=== PATIENT | female | born 1960 | race Caucasian/White ===

== ENCOUNTER → 2017-02-08 | Outpatient (CLI) | payer OTHER ==
--- NOTE | 2017-02-10 13:14 | MM ---
Reason for exam: screening (asymptomatic). Last mammogram was performed 1 year and 1 month ago. History: Excisional biopsy of the right breast, 2016. Physical Findings: A clinical breast exam by your physician is recommended on an annual basis and results should be correlated with mammographic findings. MG Screening Mammo w CAD Bilateral CC and MLO view(s) were taken. Prior study comparison: January 06, 2016, bilateral MG screening mammo w CAD. September 02, 2014, bilateral MG screening mammo w CAD. There are scattered fibroglandular densities. No significant changes when compared with prior studies. ASSESSMENT: Negative, BI-RAD 1 RECOMMENDATION: Routine screening mammogram of both breasts in 1 year.
== END | disposition home or self-care (01) ==
LOC: RADMAMWWP 13:31
PROVIDERS: ATTEND Family Medicine
DX: Z12.31 Encounter for screening mammogram for malignant neoplasm of breast (principal)

== ENCOUNTER → 2017-02-09 | Outpatient (CLI) | payer OTHER ==
--- NOTE | 2017-02-09 13:29 | XR ---
EXAMINATION TYPE: XR Hip Complete LT DATE OF EXAM: 02/09/2017 1:10 PM COMPARISON: NONE HISTORY: Pain TECHNIQUE: 2 views submitted FINDINGS: There is no evidence of erosive change or acute fracture. Hypertrophic changes seen of the femoral head. Mild concentric narrowing. No erosive changes. IMPRESSION: 1. No evidence of acute fracture or dislocation. 2. Hypertrophic change and mild arthropathy of the left hip
--- NOTE | 2017-02-09 13:32 | XR ---
EXAMINATION TYPE: XR knee complete LT DATE OF EXAM: 02/09/2017 1:11 PM COMPARISON: NONE HISTORY: Pain TECHNIQUE: Four views are submitted. FINDINGS: Hypertrophic changes are seen with mild narrowing of the medial compartment of the knee joint. Minima l hypertrophic change involving the inferior margin the patella. Trace amount of fluid in the suprapa tellar bursa. Osseous structures are intact. No acute fracture seen. IMPRESSION: 1. No acute fracture or dislocation. 2. Mild arthropathy with a small amount of fluid in the suprapatellar bursa
== END | disposition home or self-care (01) ==
LOC: RADXRMAIN 12:59
PROVIDERS: ATTEND Psychiatry & Neurology Neurology
DX: M12.862 Other specific arthropathies, not elsewhere classified, left knee (principal); M12.852 Other specific arthropathies, not elsewhere classified, left hip
CPT/HCPCS: 73502

== ENCOUNTER → 2018-01-12 | Outpatient (CLI) | payer OTHER ==
--- NOTE | 2018-01-12 23:19 | MR ---
EXAMINATION TYPE: MR cspine/tspine/lspine wo con DATE OF EXAM: 01/12/2018 COMPARISON: NONE HISTORY: Back pain TECHNIQUE: Multiplanar, multisequence imaging of the lumbar thoracic and cervical spine is performed without IV contrast. FINDINGS cervical spine: Cervical vertebra show mild straightening. There is degenerative disc space narrowing throughout the cervical spine and more severe at C4-5 C5-6 C6-7. There is uncovertebral spu rring and mild encroachment on the spinal canal at C4-5 C5-6 C6-7. This is worse on the right side co mpared to the left. Cervical spinal cord shows no edema. There is no compression fracture in the cerv ical spine. The skull base appears intact. Visualized brainstem appears normal. There is minimal uncovertebral im pingement on the left side at C4-5, mild to moderate impingement at C5-6 on the right side. Posterior elements are intact. Conclusion Spondylotic changes in the cervical spine with mild neural foraminal impingement as above. There is s ome progression of these uncovertebral spurring compared to old MR scan of 12/27/2014. Thoracic spine findings Thoracic vertebra have fairly normal alignment. There is narrowing of disc spaces throughout the mid and upper thoracic spine. There is no compression fracture. I see no focal bone destruction. There is no thoracic paraspinal mass. Posterior elements are intact. Thoracic spinal cord has normal signal p attern without evidence of edema. There is no thoracic spinal stenosis. Neural foramina appear patent . CONCLUSION: Minor degenerative disc changes in the mid and upper thoracic spine. No fracture. No spinal stenosis or thoracic disc herniation. Lumbar spine findings The lumbar vertebra have normal alignment. There is transitional S1 vertebra. There is narrowing of L 5-S1 disc space. There is mild posterior disc bulging at L4-5. There is developmentally adequate spin al canal and no spinal stenosis. Lumbar nerve roots appear normal. The lumbar neural foramina are wid saba patent. Posterior elements appear intact. The visualized sacroiliac joints appear normal. CONCLUSION: Degenerative disc narrowing at L5-S1. No fracture. No spinal stenosis or lumbar disc herniation. Smal l posterior disc bulging at L4-5 is stable compared to old exam.
== END | disposition home or self-care (01) ==
LOC: RADMRIMAIN 16:18
PROVIDERS: ATTEND Psychiatry & Neurology Neurology
DX: M99.73 Connective tissue and disc stenosis of intervertebral foramina of lumbar region (principal); M51.26 Other intervertebral disc displacement, lumbar region; M51.34 Other intervertebral disc degeneration, thoracic region; M47.812 Spondylosis without myelopathy or radiculopathy, cervical region
CPT/HCPCS: 72141; 72146; 72148

== ENCOUNTER → 2018-02-12 | Outpatient (CLI) | payer OTHER ==
--- NOTE | 2018-02-14 07:27 | MM ---
Reason for exam: screening (asymptomatic). Last mammogram was performed 1 year ago. History: Excisional biopsy of the right breast, 2016. Physical Findings: A clinical breast exam by your physician is recommended on an annual basis and results should be correlated with mammographic findings. MG Screening Mammo w CAD Bilateral CC and MLO view(s) were taken. Prior study comparison: February 08, 2017, bilateral MG screening mammo w CAD. January 06, 2016, bilateral MG screening mammo w CAD. The breast tissue is heterogeneously dense. This may lower the sensitivity of mammography. No suspicious abnormality. No significant changes when compared with prior studies. ASSESSMENT: Negative, BI-RAD 1 RECOMMENDATION: Routine screening mammogram of both breasts in 1 year.
== END | disposition home or self-care (01) ==
LOC: RADMAMWWP 14:55
PROVIDERS: ATTEND Family Medicine
DX: Z12.31 Encounter for screening mammogram for malignant neoplasm of breast (principal)
CPT/HCPCS: 77067

== ENCOUNTER → 2019-04-25 | Outpatient (CLI) | payer OTHER ==
[2019-04-25 16:04] LABS: African American GFR (CKD) 71.9 (60.0-200.0); Albumin 3.9 g/dL (3.80-4.90); Albumin/Globulin Ratio 2.17 (1.60-3.17); Anion Gap 9.1 mmol/L (4.00-12.00); Carbon Dioxide 23.9 mmol/L (21.6-31.8); Globulin 1.8 g/dL (1.6-3.3); Potassium 3.7 mmol/L (3.5-5.5); Total Bilirubin 0.4 mg/dL (0.3-1.2); Total Protein 5.7 g/dL (6.2-8.2)
== END | disposition home or self-care (01) ==
LOC: LABWHC1 10:11
PROVIDERS: ATTEND Nurse Practitioner Family
DX: Z51.81 Encounter for therapeutic drug level monitoring (principal)
CPT/HCPCS: 36415; 80053; 82607; 84207

== ENCOUNTER → 2019-04-25 | Outpatient (CLI) | payer OTHER ==
--- NOTE | 2019-04-25 11:25 | BD ---
EXAMINATION TYPE: Axial Bone Density DATE OF EXAM: 04/25/2019 COMPARISON: NONE CLINICAL HISTORY: 58 YR OLD FEMALE...ICD-10 CODE: Z13.820 OSTEOPOROSIS SCREEN Height: 63.2 Weight: 177 FRAX RISK QUESTIONS: NOTHING TO NOTE HERE RISK FACTORS HISTORY OF: Family History of Osteoporosis: YES, HER MOTHER NO HIP FX Active: YES Postmenopausal woman: ABLATION AT 47 YRS OLD, THEN MENOPAUSE FOLLOWED AT AGE 49 Lost more than 2 inches in height since high school: YES MEDICATIONS: Additional Medications: WELLBUTRIN, AND LEXAPRO, ATIVAN, CLONOPIN, STEROID INJECTIONS FOR BACK AND SH OULDER, KNEE AND ANKLE.....PAIN CLINIC FOR BACK, CALCIUM AND VIT D, Additional History: DEPRESSION AND ANXIETY, BACK PAIN, JOINT PAIN, OSTEOPARTHRITIS EXAM MEASUREMENTS: Bone mineral densitometry was performed using the [employer] System. Bone mineral density as measured about the Lumbar spine is: ----- L1-L4(G/cm2): 1.097 T Score Values are as follows: ----- L1: -1.5 ----- L2: -1.6 ----- L3: -0.4 ----- L4: 0.5 ----- L1-L4: -0.7 Bone mineral density .....FIRST DEXA SCAN.......BASELINE STUDY Bone mineral density about the R hip (g/cm2): 0.885 Bone mineral density about the L hip (g/cm2): 0.954 T Score values are as follows: -----R Neck: -0.8 -----L Neck: -0.4 -----R Total: -1.0 -----L Total: -0.4 Bone mineral density BASELINE STUDY FRAX%s: THERE IS A 6.2% CHANCE FOR A MAJOR OSTEOPOROTIC FX AND A 0.3% FOR HIP ......PROBABILITY FO R FX IN 10 YRS TIME IMPRESSION: Osteopenia (T Score between -2.5 and -1) with regards to the lumbar spine. There is slightly increased risk of fracture and the patient may be considered for treatment. Re-Screen 2-5 years. NOTE: T-SCORE=SD OF THE YOUNG ADULT MEAN.
--- NOTE | 2019-04-26 07:38 | MM ---
Reason for exam: screening (asymptomatic). Last mammogram was performed 1 year and 2 months ago. History: Excisional biopsy of the right breast, 2016. Physical Findings: A clinical breast exam by your physician is recommended on an annual basis and results should be correlated with mammographic findings. MG Screening Mammo w CAD Bilateral CC and MLO view(s) were taken. Prior study comparison: February 12, 2018, bilateral MG screening mammo w CAD. February 08, 2017, bilateral MG screening mammo w CAD. The breast tissue is heterogeneously dense. This may lower the sensitivity of mammography. No suspicious abnormality. No significant changes when compared with prior studies. ASSESSMENT: Negative, BI-RAD 1 RECOMMENDATION: Routine screening mammogram of both breasts in 1 year.
== END | disposition home or self-care (01) ==
LOC: RADMAMWWP 09:53
PROVIDERS: ATTEND Obstetrics & Gynecology
DX: Z12.31 Encounter for screening mammogram for malignant neoplasm of breast (principal); Z13.820 Encounter for screening for osteoporosis; M85.88 Other specified disorders of bone density and structure, other site
CPT/HCPCS: 77067; 77080

== ENCOUNTER → 2019-07-03 | Outpatient (CLI) | payer OTHER ==
--- NOTE | 2019-07-03 15:08 | US ---
EXAMINATION TYPE: US abdomen complete DATE OF EXAM: 07/03/2019 COMPARISON: NONE CLINICAL HISTORY: R19.01 RUQ abdominal swelling, mass, lump;D17.1 be. RUQ pain EXAM MEASUREMENTS: Liver Length: 14.6 cm Gallbladder Wall: 0.3 cm CBD: 0.4 cm Spleen: 8.1 cm Right Kidney: 10.1 x 4.4 x 4.9 cm Left Kidney: 9.1 x 4.7 x 6.2 cm Pancreas: wnl Liver: wnl Gallbladder: multiple stones with borderline wall thickening seen Evidence for sonographic Douglass's sign: no CBD: wnl Spleen: wnl Right Kidney: wnl Left Kidney: wnl Upper IVC: wnl Abd Aorta: wnl The liver is homogenous. The intrahepatic portion of the IVC and proximal abdominal aorta are within normal limits. Common bile duct is unremarkable. The visualized portions of the pancreas are homoge nous. The spleen is unremarkable. Kidneys are symmetric and free of hydronephrosis. No renal lesio ns are seen. IMPRESSION: 1. Multiple small gallstones identified with borderline gallbladder wall thickening. No evidence of p ericholecystic fluid or common bile duct dilatation.
--- NOTE | 2019-07-03 15:54 | US ---
EXAMINATION TYPE: US mass soft tissue chest/back DATE OF EXAM: 07/03/2019 COMPARISON: NONE CLINICAL HISTORY: R19.01 RUQ abdominal swelling, mass, lump;D17.1 be. palpable for 6 months, feels ba ck spasms and pain at site Hyperechoic area seen to the right of thoracic spine, midline back, = 1.2 x 1.0 x 0.6cm, probable lip maxx IMPRESSION: Probable lipoma.
== END | disposition home or self-care (01) ==
LOC: RADUSWWP 12:11
PROVIDERS: ATTEND Family Medicine
DX: K80.20 Calculus of gallbladder without cholecystitis without obstruction (principal); K82.8 Other specified diseases of gallbladder; D17.1 Benign lipomatous neoplasm of skin and subcutaneous tissue of trunk
CPT/HCPCS: 76700

== ENCOUNTER → 2019-07-22 | Outpatient (CLI) | payer OTHER ==
[2019-07-22 18:31] LABS: African American GFR (CKD) 71.9 (60.0-200.0); Albumin 4.4 g/dL (3.80-4.90); Albumin/Globulin Ratio 2.44 (1.60-3.17); Anion Gap 5.9 mmol/L (4.00-12.00); Calcium 9.4 mg/dL (8.7-10.3); Carbon Dioxide 28.1 mmol/L (21.6-31.8); Globulin 1.8 g/dL (1.6-3.3); Non-African American GFR(CKD) 62.1 (60.0-200.0); Potassium 3.9 mmol/L (3.5-5.5); Total Bilirubin 0.4 mg/dL (0.3-1.2); Total Protein 6.2 g/dL (6.2-8.2)
== END | disposition home or self-care (01) ==
LOC: LABWHC1 13:43
PROVIDERS: ATTEND Surgery
DX: K81.1 Chronic cholecystitis (principal)
CPT/HCPCS: 36415; 80053

== ENCOUNTER 2019-08-05 08:21 | Day surgery (SDC) | payer OTHER ==
[2019-07-31 15:57] VITALS: BMI 28.3
[~2019-08-05 08:21] MED LIST: DEXAMETHASONE SOD PHOSPHATE 10 MG/ML 1 ML VIAL IV ONE; HEPARIN SODIUM,PORCINE 5,000 UNIT/ML 1 ML VIAL SQ ONE; LACTATED RINGERS 1,000 ML IV SCH; ONDANSETRON 4 MG/2 ML VIAL IVP ONE; SCOPOLAMINE 1.5MG/72HR PATCH TRANSDERM ONE
[2019-08-05] MEDS ORDERED: LIDOCAINE 1% 20 ML VIAL (10MG/ML) FOR IV START INTRADERMA ONE (08:59)
[2019-08-05] MEDS: MIDAZOLAM 2 MG/2 ML VIAL IV PRN ×2 (09:14→09:27)
[2019-08-05] MEDS ORDERED: MIDAZOLAM 2 MG/2 ML VIAL ONE (09:41)
[2019-08-05] MEDS ORDERED: NEOSTIGMINE 1 MG/ML 10 ML VIAL ONE (09:41)
[2019-08-05] MEDS ORDERED: KETOROLAC 30 MG/ML 1 ML VIAL ONE (09:41)
[2019-08-05] MEDS ORDERED: SUCCINYLCHOLINE CHLORIDE 100 MG/5 ML SYR IV ONE (09:41)
[2019-08-05] MEDS ORDERED: fentaNYL (PF) 50 MCG/ML 2 ML AMP ONE (09:41)
[2019-08-05] MEDS ORDERED: ROCURONIUM BROMIDE 10 MG/ML 10 ML VIAL IV ONE (09:41)
[2019-08-05] MEDS ORDERED: GLYCOPYRROLATE 0.2 MG/ML 2 ML VIAL ONE (09:41)
[2019-08-05] MEDS ORDERED: PROPOFOL 10 MG/ML 20 ML VIAL IV ONE (09:41)
[2019-08-05] MEDS ORDERED: LIDOCAINE 1% INJ 10MG/ML (20 ML MDV) ONE (09:41)
[2019-08-05] MEDS ORDERED: BUPIVACAINE (PF) 0.25% 30 ML VIAL SQ ONE ×2 (10:14)
[2019-08-05] MEDS ORDERED: LACTATED RINGERS 1,000 ML IV ONE (10:55)
[2019-08-05] MEDS ORDERED: HYDROcodone/APAP 5-325MG 1 EACH TAB PO PRN (11:04)
[2019-08-05] MEDS ORDERED: NALOXONE 0.4 MG/ML 1 ML VIAL IV PRN (11:04)
--- NOTE | 2019-08-05 11:07 | P.OP ---
Date of Procedure: 08/05/19 Procedure(s) Performed: PREOPERATIVE DIAGNOSIS: Chronic cholecystitis, right back lipoma POSTOPERATIVE DIAGNOSIS: Same PROCEDURE: Laparoscopic cholecystectomy, removal right back lipoma SURGEON: Rosenda EBL: Minimal see anesthesia record ANESTHESIA: Gen. COMPLICATIONS: None OPERATIVE PROCEDURE: The patient was brought and placed on the operating room table in the supine position. The patient was placed under general anesthesia at that time. The abdomen was prepped and draped in the usual sterile fashion. A small vertical infraumbilical incision was made. The fascia was grasped with the Leigh forceps. The fascia was retracted anteriorly. The Veress needle was advanced into the peritoneal cavity. The saline drop test was normal. Insufflation took place up to 15 mmHg. A 5 mm optical trocar was advanced and the peritoneal cavity. 2 additional 5 mm trochars were placed in the right upper quadrant under direct visualization. A 12 mm trocar was advanced into the epigastric incision site. The right lower quadrant was inspected as the patient requested we evaluate her appendix because she has been having some right lower abdominal pain. The appendix appeared normal. The right ovary as visualized appeared normal as well. There were no inflammatory changes in the visualized lower abdomen. Focus was then directed to the gallbladder. It was mildly inflamed. The gallbladder was retracted superiorly and laterally. The peritoneum overlying the infundibulum was bluntly dissected. The patient's cystic duct was visualized. The junction between the cystic duct common and hepatic duct was identified. The cystic duct was then divided after placement of 3 12 mm clips on the patient's side and one on the specimen side. The cystic artery was identified and clipped as well. A small vessel was seen along the gallbladder fossa and clipped as well. The gallbladder was then removed from the liver bed using electrocautery. The gallbladder was then removed from the epigastric trocar site with an Endo Catch bag. The gallbladder fossa was irrigated with saline. There was no evidence of any bleeding or biliary drainage seen. The fascia at the 12 millimeter site was closed using a Rhett- Alfred 0 Vicryl stitch. The trochars were then removed. The skin at all 4 sites was closed using a 4-0 Monocryl stitch. Skin glue was utilized on the incision sites. The patient was then placed in the left decubitus position. The right back lipoma site was prepped with Betadine. A small horizontal incision measuring 1.5 cm was made over the palpable mass. The lipoma was easily excised using blunt dissection. This measured 1.5 cm. The skin was closed using interrupted 4-0 Monocryl sutures. Skin glue was applied. At the end of this procedure the sponge and needle counts were correct. DISPOSITION: Stable to the recovery room
[2019-08-05 11:09] VITALS: TEMP 97.9
[2019-08-05] MEDS: fentaNYL (PF) 50 MCG/ML 2 ML AMP IV PRN ×2 (11:21→11:43)
[2019-08-05] MEDS ORDERED: oxyCODONE-APAP 5-325MG 1 EACH TAB PO ONE (12:46)
[2019-08-05 13:58] VITALS: BP 107/69; PULSE 61; RESP 16
== END 2019-08-05 14:01 | disposition home or self-care (01) ==
LOC: OR 08:21
PROVIDERS: ATTEND Surgery
DX: K80.10 Calculus of gallbladder with chronic cholecystitis without obstruction (principal); D17.1 Benign lipomatous neoplasm of skin and subcutaneous tissue of trunk; M79.7 Fibromyalgia; M35.00 Sjogren syndrome, unspecified; Z79.1 Long term (current) use of non-steroidal anti-inflammatories (NSAID); Z79.891 Long term (current) use of opiate analgesic; Z79.899 Other long term (current) drug therapy; Z88.5 Allergy status to narcotic agent; Z88.2 Allergy status to sulfonamides; Z88.8 Allergy status to other drugs, medicaments and biological substances; F41.9 Anxiety disorder, unspecified; F32.9 Major depressive disorder, single episode, unspecified; Z79.51 Long term (current) use of inhaled steroids
CPT/HCPCS: 88304; 47562; 21931; J2250; J1644; J1100; J2710; J0690; J2405; J2001; J3010; J1885; J0330; J2704

== ENCOUNTER → 2020-06-23 | Outpatient (CLI) | payer OTHER ==
[2020-06-23 13:40] VITALS: BP 137/80; PULSE 58; RESP 20; TEMP 98.1
--- NOTE | 2020-06-23 14:29 | P.HPOB ---
History of Present Illness H&P Date: 06/23/20 Chief Complaint: The patient is here for her routine gynecologic exam and ma mmogram. This is a 59-year-old with an LMP of 2009. She is here to establish with this office. She is status post endometrial ablation in 2009 and has been amenorrheic since then. It has been about 1-1/2 years since her last pelvic exam. She is without gynecologic complaints. Review of Systems The patient has lost 30 pounds over the last year. This has been intentional and she has done this with diet and exercise. She denies respiratory, cardiac, or G.I. problems. Past Medical History Past Medical History: Eye Disorder, Fibromyalgia Additional Past Medical History / Comment(s): MENIERE'S. Migraines. HX SJOGREN'S SYNDROME. CLOSED HEAD INJURY AT AGE 20 MILD SHORT TERM MEMORY PB. Chronic neck and back pain. Osteopenia. 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 History of Any Multi-Drug Resistant Organisms: None Reported Past Surgical History: Breast Surgery, Cholecystectomy, Tubal Ligation, Uterine Ablation Additional Past Surgical History / Comment(s): FATTY MASSES REMOVED FROM ABD. PAIN CLINIC PROCEDURES. SINUS SX. Benign breast biopsy. Colonoscopy 2014(next after 10yr). Past Anesthesia/Blood Transfusion Reactions: Motion Sickness Past Psychological History: Anxiety, Depression Smoking Status: Never smoker Past Alcohol Use History: Rare (1. Year) Past Drug Use History: None Reported Additional History: She is . She lives with her partner and they have been together since about 1999. They are occasionally sexually active. She does not work outside of the home. - Past Family History Father Family Medical History: Congestive Heart Failure (CHF), Diabetes Mellitus, My ocardial Infarction ([place]), Sleep Apnea/CPAP/BIPAP Additional Family Medical History / Comment(s): AT AGE 81 COMPLICATIONS FROM DIABETES. Mother Family Medical History: Osteoarthritis (OA) Additional Family Medical History / Comment(s): MOM IS 78 Medications and Allergies Home Medications Medication Instructions Recorded Confirmed Type Cholecalciferol [Vitamin D3 (25 3,000 unit PO HS 03/12/14 06/23/20 History Mcg = 1000 Iu)] Ibuprofen [Motrin] 800 mg PO Q8HR PRN 03/12/14 06/23/20 History Pilocarpine [Salagen] 5 mg PO BID 03/12/14 06/23/20 History buPROPion XL [Wellbutrin XL] 300 mg PO QAM 03/12/14 06/23/20 History Calcium Carbonate/Vitamin D3 1 each PO HS 08/06/14 06/23/20 History [Calcium 600-Vit D3 400 Tablet] Lipo-Flavanoid 1 tab PO QAM 06/17/16 06/23/20 History Meclizine [Antivert] 25 mg PO BID PRN 06/17/16 06/23/20 History Fioricet (Unknown Dose) 1 tab PO DIRECTED PRN 07/31/19 06/23/20 History Topiramate [Topamax] 50 mg PO BID 07/31/19 06/23/20 History oxyCODONE-APAP 5-325MG [Percocet 1 tab PO BID PRN 07/31/19 06/23/20 History 5-325 mg] ARIPiprazole [Abilify] 2 mg PO DAILY 06/23/20 06/23/20 History LORazepam [Ativan] 0.5 mg PO DAILY PRN 06/23/20 06/23/20 History LORazepam [Ativan] 1 mg PO HS 06/23/20 06/23/20 History Vilazodone HCl [Viibryd] 30 mg PO DAILY 06/23/20 06/23/20 History Allergies Allergy/AdvReac Type Severity Reaction Status Date / Time divalproex sodium Allergy Rash/Hives Verified 06/23/20 13:30 [From Depakote] Sulfa (Sulfonamide Allergy Rash/Hives Verified 06/23/20 13:30 Antibiotics) codeine AdvReac Nausea & Verified 06/23/20 13:30 Vomiting Exam Vital Signs Temp Pulse Resp BP Pulse Ox 06/23/20 13:37 98.1 F 58 L 20 137/80 100 Intake and Output 06/22/20 06/23/20 06/23/20 22:59 06:59 14:59 Other: Weight 68.946 kg Height 5 feet 3 inches, weight 152 pounds, BMI 26.9. This is a well-developed well-nourished white female who is alert and oriented times 3 in no acute distress. HEENT: Within normal limits. NECK: Supple without mass or thyromegaly. CHEST AND LUNGS: Clear to auscultation. HEART: Regular rate and rhythm. BREASTS: Are without mass or discharge. There is minimal tenderness at the outer aspect of the right breast near the axilla without palpable mass. AXILLARY EXAM: Negative for adenopathy. BACK: Negative for CVA tenderness. ABDOMEN: Soft, nontender, without palpable masses. PELVIC EXAM: Normal external genitalia with mild atrophy. Cervix and vagina appear normal with mild atrophy. There is no unusual discharge. There is no evidence of prolapse. The uterus is midposition, nongravid size and nontender. There are no palpable adnexal masses or tenderness. RECTAL EXAM: Rectovaginal exam is negative for mass or tenderness and is negative for occult blood. EXTREMITIES: Nontender. IMPRESSION: 1. 59-year-old menopausal female with normal gynecologic exam. 2. History of osteopenia. PLAN: 1. Pap smear was performed. 2. Self breast awareness was discussed with the patient. 3. Screening mammogram will be done today. 4. Osteoporosis prevention was discussed. I have stressed the importance of adequate calcium, vitamin D and regular exercise. Recommended amounts of calcium and vitamin D were also discussed. 5. She was advised to return in one year for her annual well woman exam.
--- NOTE | 2020-06-25 10:50 | MM ---
Reason for exam: screening (asymptomatic). Last mammogram was performed 1 year and 2 months ago. History: Patient is postmenopausal. Excisional biopsy of the right breast, 2016. Physical Findings: A clinical breast exam by your physician is recommended on an annual basis and results should be correlated with mammographic findings. MG Screening Mammo w CAD Bilateral CC and MLO view(s) were taken. XCCL view(s) were taken of the left breast. Prior study comparison: April 25, 2019, bilateral MG screening mammo w CAD. February 12, 2018, bilateral MG screening mammo w CAD. The breast tissue is heterogeneously dense. This may lower the sensitivity of mammography. No significant changes when compared with prior studies. ASSESSMENT: Benign, BI-RAD 2 RECOMMENDATION: Routine screening mammogram of both breasts in 1 year.
== END | disposition home or self-care (01) ==
LOC: WWCWWP 13:11
PROVIDERS: ATTEND Obstetrics & Gynecology
DX: Z12.31 Encounter for screening mammogram for malignant neoplasm of breast (principal)
CPT/HCPCS: 77067

== ENCOUNTER → 2021-07-28 | Outpatient (CLI) | payer OTHER ==
[2021-07-28 10:33] VITALS: BP 128/84; PULSE 68; RESP 16; TEMP 98.2
--- NOTE | 2021-07-28 11:21 | P.HPOB ---
History of Present Illness H&P Date: 07/28/21 Chief Complaint: The patient is here for her routine gynecologic exam and ma mmogram. This is a 60-year-old with an LMP of 2009. The patient is without gynecologic complaints and denies any postmenopausal bleeding. Review of Systems The patient has gained 18 pounds over the last year. She denies respiratory, cardiac, or G.I. problems. Past Medical History Past Medical History: Eye Disorder, Fibromyalgia Additional Past Medical History / Comment(s): MENIERE'S. Migraines. HX SJOGREN'S SYNDROME. CLOSED HEAD INJURY AT AGE 20 MILD SHORT TERM MEMORY PB. Chronic neck and back pain. Osteopenia. 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 History of Any Multi-Drug Resistant Organisms: None Reported Past Surgical History: Breast Surgery, Cholecystectomy, Tubal Ligation, Uterine Ablation Additional Past Surgical History / Comment(s): FATTY MASSES REMOVED FROM ABD. PAIN CLINIC PROCEDURES. SINUS SX. Benign breast biopsy. Colonoscopy 2014(next after 10yr). Past Anesthesia/Blood Transfusion Reactions: Motion Sickness Past Psychological History: Anxiety, Depression Smoking Status: Never smoker Past Alcohol Use History: None Reported Past Drug Use History: None Reported Additional History: The patient is and has been with her partner since 1999 and they do live together. She does not work outside of the home. - Past Family History Father Family Medical History: Congestive Heart Failure (CHF), Diabetes Mellitus, Myocardial Infarction ([place]), Sleep Apnea/CPAP/BIPAP Additional Family Medical History / Comment(s): AT AGE 81 COMPLICATIONS FROM DIABETES. Mother Family Medical History: Osteoarthritis (OA) Medications and Allergies Home Medications Medication Instructions Recorded Confirmed Type Cholecalciferol [Vitamin D3 (25 3,000 unit PO HS 03/12/14 07/28/21 History Mcg = 1000 Iu)] Ibuprofen [Motrin] 800 mg PO Q8HR PRN 03/12/14 07/28/21 History buPROPion XL [Wellbutrin XL] 300 mg PO QAM 03/12/14 07/28/21 History Calcium Carbonate/Vitamin D3 1 each PO HS 08/06/14 07/28/21 History [Calcium 600-Vit D3 400 Tablet] Lipo-Flavanoid 1 tab PO QAM 06/17/16 07/28/21 History Meclizine [Antivert] 25 mg PO BID PRN 06/17/16 07/28/21 History Fioricet (Unknown Dose) 1 tab PO DIRECTED PRN 07/31/19 07/28/21 History Topiramate [Topamax] 50 mg PO BID 07/31/19 07/28/21 History oxyCODONE-APAP 5-325MG [Percocet 1 tab PO BID PRN 07/31/19 07/28/21 History 5-325 mg] ARIPiprazole [Abilify] 2 mg PO DAILY 06/23/20 07/28/21 History LORazepam [Ativan] 0.5 mg PO DAILY PRN 06/23/20 07/28/21 History LORazepam [Ativan] 1 mg PO HS 06/23/20 07/28/21 History Vilazodone HCl [Viibryd] 30 mg PO DAILY 06/23/20 07/28/21 History Rimegepant Sulfate [Nurtec Odt] 75 mg PO DAILY PRN 07/28/21 07/28/21 History Allergies Allergy/AdvReac Type Severity Reaction Status Date / Time divalproex sodium Allergy Rash/Hives Verified 07/28/21 10:33 [From Depakote] Sulfa (Sulfonamide Allergy Rash/Hives Verified 07/28/21 10:33 Antibiotics) codeine AdvReac Nausea & Verified 07/28/21 10:33 Vomiting Exam Vital Signs Temp Pulse Resp BP Pulse Ox 07/28/21 10:28 98.2 F 68 16 128/84 100 Intake and Output 07/27/21 07/28/21 07/28/21 22:59 06:59 14:59 Other: Weight 77.111 kg Height 5 feet 4 inches, weight 170 pounds, BMI 29.2. This is a well-developed well-nourished white female who is alert and oriented times 3 in no acute distress. HEENT: Within normal limits. NECK: Supple without mass or thyromegaly. CHEST AND LUNGS: Clear to auscultation. HEART: Regular rate and rhythm. BREASTS: Are without mass or discharge. AXILLARY EXAM: Negative for adenopathy. BACK: Negative for CVA tenderness. ABDOMEN: Soft, nontender, without palpable masses. PELVIC EXAM: Normal external genitalia with mild atrophy. Cervix and vagina appear normal with mild atrophy. There is no unusual discharge. There is no evidence of prolapse. The uterus is midposition, nongravid size and nontender. There are no palpable adnexal masses or tenderness. RECTAL EXAM: Rectovaginal exam is negative for mass or tenderness and is negative for occult blood. EXTREMITIES: Nontender. IMPRESSION: 1. 60-year-old menopausal female with normal gynecologic exam. 2. History of osteopenia. PLAN: 1. Pap smear was deferred since she had a normal one on 06/23/2020. 2. Self breast awareness was discussed with the patient. We have also discussed symptoms associated with inflammatory breast cancer. 3. Screening mammogram was done today. 4. Osteoporosis prevention was discussed. I have stressed the importance of adequate calcium, vitamin D and regular exercise. Recommended amounts of calcium and vitamin D were also discussed. We will plan on repeating bone density testing in 1 year. 5. She has completed her Covid vaccination series. 6. She was advised to return in one year for her annual well woman exam.
--- NOTE | 2021-07-29 11:40 | MM ---
Reason for exam: screening (asymptomatic). Last mammogram was performed 1 year and 1 month ago. History: Patient is postmenopausal. Excisional biopsy of the right breast, 2016. Physical Findings: A clinical breast exam by your physician is recommended on an annual basis and results should be correlated with mammographic findings. MG Screening Mammo w CAD Bilateral CC and MLO view(s) were taken. Prior study comparison: June 23, 2020, bilateral MG screening mammo w CAD. April 25, 2019, bilateral MG screening mammo w CAD. The breast tissue is heterogeneously dense. This may lower the sensitivity of mammography. There is no discrete abnormality. No significant changes when compared with prior studies. ASSESSMENT: Negative, BI-RAD 1 RECOMMENDATION: Routine screening mammogram of both breasts in 1 year.
== END ==
LOC: WWCWWP 10:11
PROVIDERS: ATTEND Obstetrics & Gynecology
DX: Z12.31 Encounter for screening mammogram for malignant neoplasm of breast (principal); Z01.419 Encounter for gynecological examination (general) (routine) without abnormal findings; Z87.39 Personal history of other diseases of the musculoskeletal system and connective tissue; F41.9 Anxiety disorder, unspecified; F32.9 Major depressive disorder, single episode, unspecified; Z88.2 Allergy status to sulfonamides; Z88.5 Allergy status to narcotic agent
CPT/HCPCS: 77067

== ENCOUNTER → 2022-07-09 | Outpatient (CLI) | payer OTHER ==
--- NOTE | 2022-07-09 17:05 | MR ---
EXAMINATION TYPE: MR hip LT wo con DATE OF EXAM: 07/09/2022 COMPARISON: None HISTORY: LEFT HIP PAIN Multiplanar multi echo imaging of the pelvis and left hip no contrast. The pelvic ring appears intact. Proximal left femur appears intact. No evidence of avascular necrosis . No evidence of any significant hip joint effusion. No sign of soft tissue mass. Bladder distends smoothly. No free fluid in the pelvis. No sign of a pel merrill mass. No sign of a bowel obstruction. Sacroiliac joints appear intact. No significant hip joint s pace narrowing. IMPRESSION: Negative MR scan of the left hip.
== END | disposition home or self-care (01) ==
LOC: RADMRIMAIN 14:33
PROVIDERS: ATTEND Orthopaedic Surgery
DX: M25.552 Pain in left hip (principal)

== ENCOUNTER → 2022-09-06 | Outpatient (CLI) | payer OTHER ==
[2022-09-06 10:30] VITALS: BP 126/84; PULSE 65; RESP 16; TEMP 98.6
--- NOTE | 2022-09-06 11:01 | P.HPOB ---
History of Present Illness H&P Date: 09/06/22 Chief Complaint: The patient is here for her routine gynecologic exam and ma mmogram. This is a 61-year-old with an LMP of 2009. The patient is without gynecologic complaints and denies any postmenopausal bleeding. Review of Systems The patient has gained 2 pounds over the last year. She denies respiratory, cardiac, or G.I. problems. Past Medical History Past Medical History: Eye Disorder, Fibromyalgia Additional Past Medical History / Comment(s): MENIERE'S. Migraines. HX SJOGREN'S SYNDROME. CLOSED HEAD INJURY AT AGE 20 MILD SHORT TERM MEMORY PB. Chronic neck and back pain. Osteopenia. 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 History of Any Multi-Drug Resistant Organisms: None Reported Past Surgical History: Breast Surgery, Cholecystectomy, Tubal Ligation, Uterine Ablation Additional Past Surgical History / Comment(s): FATTY MASSES REMOVED FROM ABD. PAIN CLINIC PROCEDURES. SINUS SX. Benign breast biopsy. Colonoscopy 2014(next after 10yr). Foot surgery. Past Anesthesia/Blood Transfusion Reactions: Motion Sickness Past Psychological History: Anxiety, Depression Smoking Status: Never smoker Past Alcohol Use History: None Reported Past Drug Use History: None Reported Additional History: The patient is and has been with her partner since 1999. They do live together. She does not work outside of the home. - Past Family History Father Family Medical History: Congestive Heart Failure (CHF), Diabetes Mellitus, Myocardial Infarction ([place]), Sleep Apnea/CPAP/BIPAP Additional Family Medical History / Comment(s): AT AGE 81 COMPLICATIONS FROM DIABETES. Mother Family Medical History: Osteoarthritis (OA) Additional Family Medical History / Comment(s): MOM IS 78 Medications and Allergies Home Medications Medication Instructions Recorded Confirmed Type Ibuprofen [Motrin] 800 mg PO Q8HR PRN 03/12/14 07/28/21 History buPROPion XL [Wellbutrin XL] 300 mg PO QAM 03/12/14 07/28/21 History Topiramate [Topamax] 50 mg PO BID 07/31/19 07/28/21 History oxyCODONE-APAP 5-325MG [Percocet 1 tab PO BID PRN 07/31/19 07/28/21 History 5-325 mg] ARIPiprazole [Abilify] 2 mg PO DAILY 06/23/20 07/28/21 History Vilazodone HCl [Viibryd] 30 mg PO DAILY 06/23/20 07/28/21 History Rimegepant Sulfate [Nurtec Odt] 75 mg PO DAILY PRN 07/28/21 07/28/21 History busPIRone HCl [Buspar] 10 mg PO TID PRN 09/06/22 09/06/22 History clonazePAM [KlonoPIN] 0.5 mg PO HS PRN 09/06/22 09/06/22 History Allergies Allergy/AdvReac Type Severity Reaction Status Date / Time divalproex sodium Allergy Rash/Hives Verified 09/06/22 10:19 [From Depakote] Sulfa (Sulfonamide Allergy Rash/Hives Verified 09/06/22 10:19 Antibiotics) codeine AdvReac Nausea & Verified 09/06/22 10:19 Vomiting Exam Vital Signs Temp Pulse Resp BP Pulse Ox 09/06/22 10:27 98.6 F 65 16 126/84 100 Intake and Output 09/05/22 09/06/22 09/06/22 22:59 06:59 14:59 Other: Weight 78.018 kg Height 5 feet 5 inches, weight 172 pounds, BMI 28.6. This is a well-developed well-nourished white female who is alert and oriented times 3 in no acute distress. HEENT: Within normal limits. NECK: Supple without mass or thyromegaly. CHEST AND LUNGS: Clear to auscultation. HEART: Regular rate and rhythm. BREASTS: Are without mass or discharge. AXILLARY EXAM: Negative for adenopathy. BACK: Negative for CVA tenderness. ABDOMEN: Soft, nontender, without palpable masses. PELVIC EXAM: Normal external genitalia with mild atrophy. Cervix and vagina appear normal with mild atrophy. There is no unusual discharge. There is no evidence of prolapse. The uterus is midposition, nongravid size and nontender. There are no palpable adnexal masses or tenderness. RECTAL EXAM: Rectovaginal exam is negative for mass or tenderness and is negative for occult blood. EXTREMITIES: Nontender. IMPRESSION: 1. 61-year-old menopausal female with normal gynecologic exam. 2. History of osteopenia. PLAN: 1. Pap smear cotest was performed. 2. Self breast awareness was discussed with the patient. We have also discussed symptoms associated with inflammatory breast cancer. 3. Screening mammogram will be done today. 4. Osteoporosis prevention was discussed. I have stressed the importance of adequate calcium, vitamin D and regular exercise. Recommended amounts of calcium and vitamin D were also discussed. Bone density testing will be done today. 5. She has completed her Covid vaccination series and has received 1 booster. 6. She was advised to return in one year for her annual well woman exam.
--- NOTE | 2022-09-06 12:39 | BD ---
EXAMINATION TYPE: Axial Bone Density DATE OF EXAM: 09/06/2022 COMPARISON: 2018 CLINICAL HISTORY: 61 years year old Female. ICD-10 CODE: Z78.0 POST MENOPAUSAL WITHOUT HRT Height: 5'3 Weight: 168 FRAX RISK QUESTIONS: RISK FACTORS HISTORY OF: Family History of Osteoporosis: y Postmenopausal woman: y MEDICATIONS: Additional Medications: nothing Additional History: pain meds. Migraine, sleep anxiety EXAM MEASUREMENTS: Bone mineral densitometry was performed using the [employer] System. Bone mineral density as measured about the Lumbar spine is: ----- L1-L4(G/cm2): 0.990 T Score Values are as follows: ----- L1: -2.1 ----- L2: -2.0 ----- L3: -1.5 ----- L4: -0.4 ----- L1-L4: -1.6 Bone mineral density has: Decreased -10.0% since study of: 04/25/2019 Bone mineral density about the R hip (g/cm2): 0.881 Bone mineral density about the L hip (g/cm2): 0.922 T Score values are as follows: -----R Neck: -1.1 -----L Neck: -0.8 -----R Total: -1.3 -----L Total: -1.0 Bone mineral density has: Decreased -6.5% since study of: 04/25/2019 FRAX%s: The graph provided illustrates a 4.7 %chance for a major osteoporotic fx and a 0.5% chance fo r the hips probability for fx in 10 years time. IMPRESSION: Osteopenia (T Score between -2.5 and -1). There is slightly increased risk of fracture and the patient may be considered for treatment. Re-Screen 2-5 years. NOTE: T-SCORE=SD OF THE YOUNG ADULT MEAN.
--- NOTE | 2022-09-07 09:09 | MM ---
Reason for Exam: Screening (asymptomatic). Last mammogram was performed 1 year(s) and 2 month(s) ago. Patient History: Menarche at age 12. First Full-Term at age 23. Postmenopausal. 2016, Excisional Biopsy on the Right side. Risk Values: Citlalli 5 year model risk: 1.6%. NCI Lifetime model risk: 7.5%. Prior Study Comparison: 04/25/2019 Bilateral Screening Mammogram, [facility]. 06/23/2020 Bilateral Screening Mammogram, [facility]. 07/28/2021 Bilateral Screening Mammogram, [facility]. Tissue Density: There are scattered fibroglandular densities. Findings: Analyzed By CAD. There is no suspicious new group of microcalcifications or new suspicious mass in either breast. Overall Assessment: Negative, BI-RAD 1 Management: Screening Mammogram of both breasts in 1 year. A clinical breast exam by your physician is recommended on an annual basis and results should be correlated with mammographic findings. Electronically signed and approved by: Taco Arroyo M.D.
== END ==
LOC: WWCWWP 10:13
PROVIDERS: ATTEND Obstetrics & Gynecology
DX: Z01.419 Encounter for gynecological examination (general) (routine) without abnormal findings (principal); Z12.31 Encounter for screening mammogram for malignant neoplasm of breast; Z78.0 Asymptomatic menopausal state; Z87.39 Personal history of other diseases of the musculoskeletal system and connective tissue; Z88.2 Allergy status to sulfonamides; Z88.5 Allergy status to narcotic agent; Z88.8 Allergy status to other drugs, medicaments and biological substances
CPT/HCPCS: 77067; 77080

== ENCOUNTER → 2023-12-20 | Outpatient (CLI) | payer OTHER ==
[2023-12-20 11:02] VITALS: BP 154/85; PULSE 65; RESP 16; TEMP 97.8
--- NOTE | 2023-12-20 11:12 | P.HPOB ---
History of Present Illness H&P Date: 12/20/23 Chief Complaint: The patient is here for her routine gynecologic exam and ma mmogram. This is a 63-year-old with an LMP of 2009. The patient is without gynecologic complaints. Review of Systems The patient's weight has been stable over the last year. She denies respiratory, cardiac, or G.I. problems. Past Medical History Past Medical History: Eye Disorder, Fibromyalgia Additional Past Medical History / Comment(s): MENIERE'S. Migraines. HX SJOGREN'S SYNDROME. CLOSED HEAD INJURY AT AGE 20 MILD SHORT TERM MEMORY PB. Chronic neck and back pain. Osteopenia. 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 History of Any Multi-Drug Resistant Organisms: None Reported Past Surgical History: Breast Surgery, Cholecystectomy, Tubal Ligation, Uterine Ablation Additional Past Surgical History / Comment(s): FATTY MASSES REMOVED FROM ABD. PAIN CLINIC PROCEDURES. SINUS SX. Benign breast biopsy. Colonoscopy 2023(next after <1yr for polyp). Foot surgery. Past Anesthesia/Blood Transfusion Reactions: Motion Sickness Past Psychological History: Anxiety, Depression Smoking Status: Never smoker Past Alcohol Use History: Rare (1 per year.) Past Drug Use History: None Reported Additional History: The patient is and has been with her partner since 1999. They live together, and are no longer sexually active. She does not work outside of the home. - Past Family History Father Family Medical History: Congestive Heart Failure (CHF), Diabetes Mellitus, Myocardial Infarction ([place]), Sleep Apnea/CPAP/BIPAP Additional Family Medical History / Comment(s): AT AGE 81 COMPLICATIONS FROM DIABETES. Mother Family Medical History: Osteoarthritis (OA) Additional Family Medical History / Comment(s): MOM IS 78 Medications and Allergies Home Medications Medication Instructions Recorded Confirmed Type Ibuprofen [Motrin] 800 mg PO Q8HR PRN 03/12/14 12/20/23 History buPROPion XL [Wellbutrin XL] 300 mg PO QAM 03/12/14 12/20/23 History Topiramate [Topamax] 50 mg PO BID 07/31/19 12/20/23 History oxyCODONE-APAP 5-325MG [Percocet 1 tab PO BID PRN 07/31/19 12/20/23 History 5-325 mg] Vilazodone HCl [Viibryd] 40 mg PO DAILY 06/23/20 12/20/23 History Rimegepant Sulfate [Nurtec Odt] 75 mg PO DAILY PRN 07/28/21 12/20/23 History busPIRone HCl [Buspar] 10 mg PO TID PRN 09/06/22 12/20/23 History clonazePAM [KlonoPIN] 0.5 mg PO HS PRN 09/06/22 12/20/23 History ARIPiprazole [Abilify] 5 mg PO DAILY 12/20/23 12/20/23 History Allergies Allergy/AdvReac Type Severity Reaction Status Date / Time divalproex sodium Allergy Rash/Hives Verified 12/20/23 10:36 [From Depakote] Sulfa (Sulfonamide Allergy Rash/Hives Verified 12/20/23 10:36 Antibiotics) codeine AdvReac Nausea & Verified 12/20/23 10:36 Vomiting Exam Vital Signs Temp Pulse Resp BP Pulse Ox 12/20/23 10:38 97.8 F 65 16 154/85 100 Intake and Output 12/19/23 12/20/23 12/20/23 22:59 06:59 14:59 Other: Weight 78.018 kg Height 5 feet 2 inches, weight 172 pounds, BMI 31.5. This is a well-developed well-nourished white female who is alert and oriented times 3 in no acute distress. HEENT: Within normal limits. NECK: Supple without mass or thyromegaly. CHEST AND LUNGS: Clear to auscultation. HEART: Regular rate and rhythm. BREASTS: Are without mass or discharge. AXILLARY EXAM: Negative for adenopathy. BACK: Negative for CVA tenderness. ABDOMEN: Soft, nontender, without palpable masses. PELVIC EXAM: Normal external genitalia with mild to moderate atrophy. Cervix and vagina appear normal is mild to moderate atrophy. There is no unusual discharge. There is no evidence of prolapse. The uterus is midposition, nongravid size and nontender. There are no palpable adnexal masses or tenderness. RECTAL EXAM: Rectovaginal exam is negative for mass or tenderness and is negative for occult blood. EXTREMITIES: Nontender. IMPRESSION: 1. 63-year-old menopausal female with normal gynecologic exam. 2. She of osteopenia. 3. Elevated blood pressure. PLAN: 1. Pap smear was deferred since she had a negative Pap smear cotest on 09/06/2022. 2. Self breast awareness was discussed with the patient. We have also discussed symptoms associated with inflammatory breast cancer. 3. Screening mammogram will be done today. 4. Osteoporosis prevention was discussed. I have stressed the importance of adequate calcium, vitamin D and regular exercise. Recommended amounts of calcium and vitamin D were also discussed. We will plan on repeating the bone density test in 1 year. 5. She states she will be due for another colonoscopy sometime this year because of a large polyp that was partially removed in October. She states she will do this with Dr. Bourgeois. 6. We have discussed her elevated blood pressure. She has a blood pressure cuff and I have recommended that she check her own blood pressure on a regular basis and follow up with her PCP for blood pressure elevations. 7. She was advised to return in one year for her annual well woman exam.
--- NOTE | 2023-12-21 08:21 | MM ---
Reason for Exam: Screening (asymptomatic). Last mammogram was performed 1 year(s) and 3 month(s) ago. Patient History: Menarche at age 12. First Full-Term at age 23. Postmenopausal. 2016, Excisional Biopsy on the Right side. Risk Values: Citlalli 5 year model risk: 1.7%. NCI Lifetime model risk: 7.1%. Prior Study Comparison: 06/23/2020 Bilateral Screening Mammogram, [facility]. 07/28/2021 Bilateral Screening Mammogram, [facility]. 09/06/2022 Bilateral MG screening mammo w CAD, [facility]. Tissue Density: The breasts are heterogeneously dense, which may obscure small masses. Findings: Analyzed By CAD. Right breast: There is no suspicious group of microcalcifications or new suspicious mass. Left breast: There is no suspicious group of microcalcifications or new suspicious mass. There is no suspicious group of microcalcifications or new suspicious mass. Overall Assessment: Negative, BI-RAD 1 Management: Screening Mammogram of both breasts in [address] [facility] will attempt to contact patient to return for supplemental views and ultrasound if indicated. Patient should continue monthly self-breast exams. A clinical breast exam by your physician is recommended on an annual basis. This exam should not preclude additional follow-up of suspicious palpable abnormalities. Note on Citlalli scores and lifetime risk: 1. A Citlalli score greater than 3% is considered moderate risk. If this is the case, consider specialist referral to assess eligibility for a risk reducing agent. 2. If overall lifetime risk for the development of breast cancer is 20% or higher, the patient may qualify for future screening with alternating mammogram and breast MRI. Electronically signed and approved by: Bishnu Lance DO
== END ==
LOC: WWCWWP 10:26
PROVIDERS: ATTEND Obstetrics & Gynecology
DX: M85.88 Other specified disorders of bone density and structure, other site (principal); R03.0 Elevated blood-pressure reading, without diagnosis of hypertension; Z78.0 Asymptomatic menopausal state; Z88.5 Allergy status to narcotic agent; Z88.2 Allergy status to sulfonamides; Z88.1 Allergy status to other antibiotic agents
CPT/HCPCS: 77067

== ENCOUNTER → 2025-02-05 | Outpatient (CLI) | payer OTHER ==
[2025-02-05 11:17] VITALS: BP 127/73; PULSE 65; RESP 16; TEMP 98.6
--- NOTE | 2025-02-05 11:48 | P.HPOB ---
History of Present Illness H&P Date: 02/05/25 Chief Complaint: The patient is here for her routine gynecologic exam and ma mmogram. This is a 64-year-old G2, P2 with an LMP of 2009. The patient is without gynecologic complaints and denies any postmenopausal bleeding. Review of Systems The patient has gained 3 pounds over the last year. She denies respiratory, cardiac, or G.I. problems. Past Medical History Past Medical History: Eye Disorder, Fibromyalgia Additional Past Medical History / Comment(s): MENIERE'S. Migraines. HX SJOGREN'S SYNDROME. CLOSED HEAD INJURY AT AGE 20 MILD SHORT TERM MEMORY PB. Chronic neck and back pain. Osteopenia. 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 History of Any Multi-Drug Resistant Organisms: None Reported Past Surgical History: Breast Surgery, Cholecystectomy, Tubal Ligation, Uterine Ablation Additional Past Surgical History / Comment(s): FATTY MASSES REMOVED FROM ABD. PAIN CLINIC PROCEDURES. SINUS SX. Benign breast biopsy. Colonoscopy 2023(next after <1yr for polyp). Foot surgery. Past Anesthesia/Blood Transfusion Reactions: Motion Sickness Past Psychological History: Anxiety, Depression Smoking Status: Never smoker Past Alcohol Use History: Rare (1 drink per year.) Past Drug Use History: None Reported Additional History: Patient is and has been with her partner since 1999. They live together and are infrequently sexually active. She does not work outside of the home. - Past Family History Father Family Medical History: Congestive Heart Failure (CHF), Diabetes Mellitus, Myocardial Infarction ([place]), Sleep Apnea/CPAP/BIPAP Additional Family Medical History / Comment(s): AT AGE 81 COMPLICATIONS FROM DIABETES. Mother Family Medical History: Osteoarthritis ([place]) Additional Family Medical History / Comment(s): MOM IS 78 Medications and Allergies Home Medications Medication Instructions Recorded Confirmed Type Ibuprofen [Motrin] 800 mg PO Q8HR PRN 03/12/14 12/20/23 History buPROPion XL [Wellbutrin XL] 300 mg PO QAM 03/12/14 12/20/23 History Topiramate [Topamax] 50 mg PO BID 07/31/19 12/20/23 History oxyCODONE-APAP 5-325MG [Percocet 1 tab PO BID PRN 07/31/19 12/20/23 History 5-325 mg] Vilazodone HCl [Viibryd] 40 mg PO DAILY 06/23/20 12/20/23 History Rimegepant Sulfate [Nurtec Odt] 75 mg PO DAILY PRN 07/28/21 12/20/23 History busPIRone HCl [Buspar] 10 mg PO TID PRN 09/06/22 12/20/23 History ARIPiprazole [Abilify] 5 mg PO DAILY 12/20/23 12/20/23 History Allergies Allergy/AdvReac Type Severity Reaction Status Date / Time divalproex sodium Allergy Rash/Hives Verified 02/05/25 11:04 [From Depakote] Sulfa (Sulfonamide Allergy Rash/Hives Verified 02/05/25 11:04 Antibiotics) codeine AdvReac Nausea & Verified 02/05/25 11:04 Vomiting Exam Vital Signs Temp Pulse Resp BP Pulse Ox 02/05/25 11:10 98.6 F 65 16 127/73 98 Intake and Output 02/04/25 02/05/25 02/05/25 22:59 06:59 14:59 Other: Weight 79.379 kg Height 5 feet 3 inches, weight 175 pounds, BMI 31.0. This is a well-developed well-nourished white female who is alert and oriented times 3 in no acute distress. HEENT: Within normal limits. NECK: Supple without mass or thyromegaly. CHEST AND LUNGS: Clear to auscultation. HEART: Regular rate and rhythm. BREASTS: Are without mass or discharge. AXILLARY EXAM: Negative for adenopathy. BACK: Negative for CVA tenderness. ABDOMEN: Soft, nontender, without palpable masses. PELVIC EXAM: Normal external genitalia with mild atrophy. Cervix and vagina appear normal with mild atrophy. There is no unusual discharge. There is no evidence of prolapse. The uterus is midposition, nongravid size and nontender. There are no palpable adnexal masses or tenderness. RECTAL EXAM: Rectovaginal exam is negative for mass or tenderness and is negative for occult blood. EXTREMITIES: Nontender. IMPRESSION: 1. 64-year-old menopausal female with normal gynecologic exam. 2. History of osteopenia. PLAN: 1. Pap smear was deferred since she had a negative Pap smear cotest on 09/06/2022. 2. Self breast awareness was discussed with the patient. We have also discussed symptoms associated with inflammatory breast cancer. 3. Screening mammogram will be done today. 4. Osteoporosis prevention was discussed. Bone density testing will be done t hair. 5. The patient states she is due for a colonoscopy and will arrange this through her PCP. 6. She was advised to return in one year for her annual well woman exam.
--- NOTE | 2025-02-05 13:03 | MM ---
Reason for Exam: Screening (asymptomatic). Last mammogram was performed 1 year(s) and 2 month(s) ago. Patient History: Menarche at age 12. First Full-Term at age 23. Postmenopausal. 2016, Excisional Biopsy on the Right side. Risk Values: Citlalli 5 year model risk: 1.7%. NCI Lifetime model risk: 6.9%. Prior Study Comparison: 07/28/2021 Bilateral Screening Mammogram, [facility]. 09/06/2022 Bilateral MG screening mammo w CAD, [facility]. 12/20/2023 Bilateral MG screening mammo w CAD, [facility]. Tissue Density: The breasts are heterogeneously dense, which may obscure small masses. Findings: Analyzed By CAD. Right breast: There is no suspicious group of microcalcifications or new suspicious mass. Left breast: There is no suspicious group of microcalcifications or new suspicious mass. Overall Assessment: Negative, BI-RAD 1 Management: Screening Mammogram of both breasts in [address] [facility] will attempt to contact patient to return for supplemental views and ultrasound if indicated. Patient should continue monthly self-breast exams. A clinical breast exam by your physician is recommended on an annual basis. This exam should not preclude additional follow-up of suspicious palpable abnormalities. Note on Citlalli scores and lifetime risk: 1. A Citlalli score greater than 3% is considered moderate risk. If this is the case, consider specialist referral to assess eligibility for a risk reducing agent. 2. If overall lifetime risk for the development of breast cancer is 20% or higher, the patient may qualify for future screening with alternating mammogram and breast MRI. [facility], , 02/05/2025 1:00 PM. Electronically signed and approved by: Bishnu Lance DO
--- NOTE | 2025-02-06 07:43 | BD ---
EXAMINATION TYPE: Axial Bone Density DATE OF EXAM: 02/05/2025 CLINICAL HISTORY: 64 years old Female. ICD-10 CODE: Z78.0 POST MENOPAUSAL , Additional History: Height: 62.2 Weight: 173 FRAX RISK QUESTIONS: Family History (Parent hip fracture): yes 3. Menopause before 45: no at 50 RISK FACTORS nothing to note here HISTORY OF: height loss MEDICATIONS: pain meds, sleep meds, migraine meds, anxiety meds, vit d and calcium EXAM MEASUREMENTS: Bone mineral densitometry was performed using the [employer] System. Bone mineral density as measured about the Lumbar spine is: ----- L1-L4(G/cm2): 0.979 T Score Values are as follows: ----- L1: -2.0 ----- L2: -2.4 ----- L3: -1.1 ----- L4: -1.4 ----- L1-L4: -1.7 Z Score Values are as follows: ----- L1: -0.9 ----- L2: -1.4 ----- L3: -0.1 ----- L4: -0.3 ----- L1-L4: -0.6 Bone mineral density has: Decreased -9.5% since study of: 09.06.2022 Bone mineral density about the R hip (g/cm2): 0.795 Bone mineral density about the L hip (g/cm2): 0.913 T Score values are as follows: -----R Neck: -1.3 -----L Neck: -0.6 -----R Total: -1.7 -----L Total: -0.7 Z Score values are as follows: -----R Neck: -0.2 -----L Neck: 0.5 -----R Total: -0.9 -----L Total: 0.1 Bone mineral density has: Decreased -0.7% since study of: 09.06.2022 FRAX%s: The graph provided illustrates a 15.7% chance for a major osteoporotic fx and a 0.7% chance f or the hips probability for fx in 10 years time. IMPRESSION: Osteopenia (T Score between -2.5 and -1). There is slightly increased risk of fracture and the patient may be considered for treatment. Re-Screen 2-5 years. NOTE: T-SCORE=SD OF THE YOUNG ADULT MEAN. [facility], , 02/06/2025 7:41 AM
== END ==
LOC: WWCWWP 10:50
PROVIDERS: ATTEND Obstetrics & Gynecology
DX: Z01.419 Encounter for gynecological examination (general) (routine) without abnormal findings (principal); Z12.31 Encounter for screening mammogram for malignant neoplasm of breast; Z88.2 Allergy status to sulfonamides; Z88.5 Allergy status to narcotic agent; Z88.8 Allergy status to other drugs, medicaments and biological substances; Z87.39 Personal history of other diseases of the musculoskeletal system and connective tissue
CPT/HCPCS: 77063; 77067; 77080